=== PATIENT | female | born 1990 | race American Indian/Alaskan Native ===

== ENCOUNTER 2021-09-03 13:01 | Emergency (ER) | payer MEDICAID ==
[2021-09-03 14:25] LABS: HCG Qualitative,Urine Positive (Negative)
--- NOTE | 2021-09-03 14:34 | Emergency Department Report ---
ED Female HPI - General Chief complaint: Abdominal Pain Stated complaint: PREG/SHARP ABD PAIN Time Seen by Provider: 09/03/21 14:31 Source: patient Mode of arrival: Ambulatory Limitations: No Limitations - History of Present Illness Initial comments: Patient is a 30-year-old female that comes to the emergency room complaining of intermittent sharp abdominal pains. She states she had a positive home test. Her last menstrual cycle she is unclear about but she says sometime in July. She denies vaginal bleeding or discharge. She denies fever or chills. She denies dysuria. 4 Para 3 Quality: sharp Consistency: intermittent Improves with: none Worsens with: none Are you Now?: Yes Associated Symptoms: denies other symptoms, abdominal pain. denies: vaginal discharge, vaginal bleeding, nausea/vomiting, fever/chills, headaches, loss of appetite, dysuria, hematuria, rash, seizure, shortness of breath, syncope, weakness - Related Data Sexually active: Yes : 4 Para: 3 Home Medications Medication Instructions Recorded Confirmed Last Taken No Known Home Medications [No 02/18/13 02/18/13 Unknown Reported Home Medications] Allergies Allergy/AdvReac Type Severity Reaction Status Date / Time No Known Allergies Allergy Verified 02/18/13 19:24 ED Review of Systems ROS: Stated complaint: PREG/SHARP ABD PAIN Other details as noted in HPI Comment: All other systems reviewed and negative ED Past Medical Hx - Past Medical History Previous Medical History?: No - Surgical History Past Surgical History?: No - Family History Family history: no significant - Social History Smoking Status: Never Smoker Substance Use Type: None - Medications Home Medications: Home Medications Medication Instructions Recorded Confirmed Last Taken Type No Known Home Medications [No 02/18/13 02/18/13 Unknown History Reported Home Medications] ED Physical Exam - General Limitations: No Limitations General appearance: alert, in no apparent distress - Head Head exam: Present: atraumatic, normocephalic - Eye Eye exam: Present: normal appearance - ENT ENT exam: Present: mucous membranes moist - Neck Neck exam: Present: normal inspection - Respiratory Respiratory exam: Present: normal lung sounds bilaterally. Absent: respiratory distress - Cardiovascular Cardiovascular Exam: Present: regular rate, normal rhythm. Absent: systolic murmur, diastolic murmur, rubs, gallop - GI/Abdominal GI/Abdominal exam: Present: soft, normal bowel sounds - Extremities Exam Extremities exam: Present: normal inspection - Back Exam Back exam: Present: normal inspection - Neurological Exam Neurological exam: Present: alert, oriented X3 - Psychiatric Psychiatric exam: Present: normal affect, normal mood - Skin Skin exam: Present: warm, dry, intact, normal color. Absent: rash ED Course Vital Signs 09/03/21 14:08 Temperature 98.2 F Pulse Rate 101 H Respiratory 18 Rate Blood Pressure 110/62 O2 Sat by Pulse 99 Oximetry ED Medical Decision Making - Lab Data Result diagrams: 09/03/21 15:31 - Radiology Data Radiology results: report reviewed, image reviewed See report - Medical Decision Making Labs 09/03/21 09/03/21 09/03/21 14:15 15:31 15:31 WBC 8.3 RBC 3.87 Hgb 12.4 Hct 36.6 MCV 95 MCH 32 MCHC 34 RDW 13.3 Plt Count 259 HCG, Quant 88594 H Urine Color Yellow Urine Turbidity Clear Urine pH 7.0 Ur Specific [place] 1.015 Urine Protein <15 mg/dl Urine Glucose (UA) Neg Urine Ketones Neg Urine Blood Neg Urine Nitrite Neg Ur Reducing Substances Not Reportable Urine Bilirubin Neg Urine Ictotest Not Reportable Urine Urobilinogen < 2.0 Ur Leukocyte Esterase Neg Urine WBC (Auto) < 1.0 Urine RBC (Auto) 1.0 U Epithel Cells (Auto) 3.0 Urine Mucus Few Urine HCG, Qual Positive A Vital Signs 09/03/21 14:08 Temperature 98.2 F Pulse Rate 101 H Respiratory 18 Rate Blood Pressure 110/62 O2 Sat by Pulse 99 Oximetry Ultrasound noted Labs noted UA noted hCG noted Patient being discharged home with discharge plan of care including diet, activity, medications and follow-up. She verbalizes understanding - Differential Diagnosis Rule out ectopic Critical care attestation.: If time is entered above; I have spent that time in minutes in the direct care of this critically ill patient, excluding procedure time. ED Disposition Clinical Impression: Qualifiers: Weeks of gestation: less than 8 weeks Qualified Code(s): Z3A.01 - Less than 8 weeks gestation of Disposition: 01 HOME / SELF CARE / HOMELESS Is pt being admited?: No Does the pt Need Aspirin: No Condition: Stable Instructions: First Trimester of , [id number], Abdominal Pain (ED) Additional Instructions: Diet and activity as tolerated Stay well-hydrated with water Tylenol for pain Follow-up with EDUCATION TECHNICIAN in 48 hours for reevaluation. I have given you referral below Referrals: BLUE LANDRUM MD [Staff Physician] - 3-5 Days Forms: Work/School Release Form(ED) Time of Disposition: 17:20
[2021-09-03 14:37] LABS: Bilirubin,Urine NEG (Negative); Blood,Urine NEG (Negative); Color,Urine Yellow (Yellow); Mucus,Urine FEW /HPF; Protein,Urine <15 mg/dL mg/dL (Negative); Urobilinogen,Urine < 2.0 mg/dL (<2.0); WBC,Urine < 1.0 /HPF (0.0-6.0)
[2021-09-03 15:50] LABS: Hematocrit 36.6 % (30.3-42.9); Hemoglobin 12.4 gm/dl (10.1-14.3); Mean Corpuscular HGB Conc 34 % (30-34); Mean Corpuscular Volume 95 fl (79-97); Platelet Count 259 K/mm3 (140-440); Red Blood Count 3.87 M/mm3 (3.65-5.03); Red Cell Distribution Width 13.3 % (13.2-15.2)
--- NOTE | 2021-09-03 17:14 | Ultrasound Report ---
ULTRASOUND OBSTETRIC REASON FOR EXAM: abd pain TECHNIQUE: Transabdominal and transvaginal ultrasound was performed to evaluate a first trimester pre gnancy. COMPARISON: None available. FINDINGS: FINDINGS: The pole, yolk sac, and gestational sac are normal in appearance. Reedy-rump length: 4 mm. This corresponds with a gestational age of 6 weeks 0 days. heart rate: 107 bpm Perigestational hemorrhage: No evidence of perigestational hemorrhage on the provided images. MATERNAL FINDINGS: The uterus demonstrates an otherwise unremarkable sonographic appearance. The right ovary demonstrates a normal sonographic appearance. The left ovary demonstrates a normal sonographic appearance. Cul-de-sac: There is no free fluid. IMPRESSION: Viable intrauterine . No significant abnormality. Gestational age is 6 weeks 0 days by ultra sound. Recommend clinical screening and ultrasound follow-up in the second trimester to screen for an omalies. Signer Name: Josiah Ramírez MD Signed: 09/03/2021 5:10 PM Workstation Name: [id number]
[2021-09-03 18:10] VITALS: BP 119/78
== END 2021-09-03 18:05 | disposition home or self-care (01) ==
LOC: ED 13:01
DX: O26.891 Other specified pregnancy related conditions, first trimester (principal); R10.9 Unspecified abdominal pain; Z3A.01 Less than 8 weeks gestation of pregnancy
CPT/HCPCS: 76801; 81001; 81025; 84702; 85027; 86900; 86901; 99284